=== PATIENT | female | born 1960 | race Caucasian/White ===

== ENCOUNTER → 2020-02-17 | Outpatient (CLI) | payer OTHER ==
[~2020-02-17] MED LIST: LIDOCAINE 2%/EPI 1:100,000 20 ML VIAL. INJ ONE
--- NOTE | 2020-02-17 12:16 | RAD ---
Examination: STEREOTACTIC BREAST BIOPSY RT, DIGITAL DIAGNOSTIC RT History: Reason: MICROCALICATIONS OF RT BREAST / Spl. Instructions: / History: Comparison/Correlation: 12/31/2019 screening mammographic exam Findings: Risks and benefits of stereotactic core biopsy of the right breast calcification cluster in the anterior retroareolar region were discussed with the patient and informed consent was obtained. The breast was placed in the CC projection. Superior approach utilized. Cleansing with Betadine performed. Approximately 6 cc 1 percent lidocaine was administered at the anticipated site of scalpel incision and more deeply. Small scalpel incision was made. [facility] image was obtained. Prefire stereo images were obtained after advancement of the 18-gauge core biopsy needle into the breast. The needle was fired. Repeat imaging performed. The needle is in place. At least 6 samples were then obtained with a vacuum-assisted device. Additional lidocaine with epinephrine was administered during the procedure. RIGHT BREAST SPECIMEN RADIOGRAPH: Microcalcifications are present in several of the sampled cores. RIGHT BREAST CLIP LOCALIZATION: Following confirmation of sampling of the microcalcifications, biopsy clip marker was passed through the biopsy probe into the biopsy site. Subsequent stereo images demonstrate the clip marker to be in place. TWO-VIEW IMMEDIATE POST PROCEDURE DIGITAL MAMMOGRAM: CC and ML views of the right breast were obtained post stereotactic biopsy. Scattered fibroglander elements are present The clustered microcalcifications within the right breast have been excised. A biopsy clip is present a few millimeters posterior to a very small hematoma or other fluid collection. Minimal subcutaneous emphysema is compatible with the post-procedure state. The patient tolerated procedure well without immediate complications. Impression: Successful Stereotactic core biopsy of right breast microcalcification cluster. Electronically signed by: Juvenal Mccarthy MD (02/17/2020 12:13 PM) [email or web address]
--- NOTE | 2020-02-18 18:09 | PATHOLOGY ---
[facility] Accession Number: [id number] . 01 Material submitted: . breast - RIGHT BREAST TISSUE. Modifiers: right . 01 Clinical history: . RIGHT BREAST CALCIFICATIONS, MICROCALCIFICATIONS OF RIGHT BREAST . 02 Diagnosis: Breast tissue, right breast stereotactic biopsies: - Fibroadenomatous change, focal. - Fibrocystic changes with the following components: - Stromal fibrosis. - Duct ectasia. - Cystic change. - Apocrine metaplasia. - Periductal chronic inflammation, focal. - Few microcalcifications identified. (JPM:jasmyn; 02/18/2020) MBR 02/18/2020 1607 Local . 02 Comment: There are a few microcalcifications identified, primarily associated with the small focus of fibroadenomatous change. There is no atypia or evidence of malignancy. (JPM:jasmyn; 02/18/2020) . 02 Electronically signed: . Ravinder Bonds MD, Pathologist NPI- [id number] . 01 Gross description: . The specimen is received in formalin, labeled "Lashay Pepe, right breast" and consists of an orange cassette containing needle cores of yellow fibroadipose tissue measuring 2.6 x 1.7 x 0.5 cm which are transferred to cassette A1. The specimen was obtained at 8:50 AM on 02/17/2020, and placed in formalin at 9:00 AM. The cold ischemic time is 10 minutes and the total formalin fixation time is greater than 6 hours less than 72 hours. (RHIANNAY; 02/17/2020) SYU/SYU 02/18/2020 1605 Local . 02 Pathologist provided ICD-10: N60.11, N60.31, N60.41, N60.81, N61.0 . 02 CPT . 228787 Specimen Comment: A courtesy copy of this report has been sent to [phone] Specimen Comment: Report sent to Performed at: [address] [facility], [place] [id number] MD Akira Arriaza MD Phone: [phone] Performed at: 02 [facility] [address] [place] [id number] MD Ravinder Bonds MD Phone: [phone]
== END | disposition home or self-care (01) ==
LOC: MAMMO 08:00
PROVIDERS: ATTEND Surgery
DX: R92.1 Mammographic calcification found on diagnostic imaging of breast (principal); D24.1 Benign neoplasm of right breast; N60.31 Fibrosclerosis of right breast; N60.41 Mammary duct ectasia of right breast; N60.81 Other benign mammary dysplasias of right breast; N61.0 Mastitis without abscess; Z88.2 Allergy status to sulfonamides; Z88.6 Allergy status to analgesic agent; Z79.899 Other long term (current) drug therapy; Z98.890 Other specified postprocedural states
CPT/HCPCS: 19081; 77065; C1713; J3490; 19085; 77022; 88305